=== PATIENT | male | born 1955 | race Caucasian/White ===

== ENCOUNTER 2018-02-17 20:19 | Inpatient (IN) | payer MEDICAID ==
[~2018-02-17] VITALS: Ht 167.6 cm; Wt 71.9 kg
[2018-02-17] MEDS ORDERED: SODIUM CHLORIDE 0.9% 1,000 ML IV ONE ×2 (21:09→22:18)
[2018-02-17 21:45] LABS: BASOPHILS % 0.8 % (0.0-2.0); LYMPHOCYTES % 15.4 % (20.0-50.0); MEAN CORPUSCULAR HEMOGLOBIN 30.6 pg (28.0-32.0); MEAN CORPUSCULAR VOLUME 91.7 fL (80.0-94.0); MEAN PLATELET VOLUME 9.1 fl (7.4-10.4); MONOCYTES % 6.5 % (2.0-8.0); NEUTROPHILS % 66.3 % (40.0-76.0); PLATELET 198 x1000/uL (130-400); RED BLOOD CELL COUNT 5.23 mill/uL (4.7-6.1)
[2018-02-17 21:50] LABS: CHLORIDE 96 mEq/L (98-107)
[2018-02-17] MEDS ORDERED: SODIUM CHLORIDE 0.9% 1000ML BAG (SEPSIS BOLUS) IV ONE (23:00)
[2018-02-17 23:06] LABS: BG BASE EXCESS -1.4 mmol/L (-2.0-2.0); BG CARBOXYHEMOGLOBIN 0.6 % (0.5-1.5); BG DEOXYHEMOGLOBIN 5.6 % (0.0-5.0); BG FRACTION INSPIRED OXYGEN 21; BG METHEMOGLOBIN 0.5 % (0.0-1.5); BG OXYGEN SATURATION 94.3 % (92.0-98.5); BG OXYHEMOGLOBIN 93.3 % (94.0-97.0); BG PCO2 42.4 mmHg (35.0-45.0); BG PO2 74.2 mmHg (75.0-100.0); BG SAMPLE SITE RIGHT BRACHIAL; BG TOTAL HEMOGLOBIN 16.1 g/dL (12.0-18.0); BG VENT MODE ROOM AIR
[2018-02-18 00:14] LABS: CLARITY URINE CLEAR (CLEAR); COLOR URINE YELLOW (YELLOW); KETONES URINE NEGATIVE (NEGATIVE); LEUKOCYTE ESTERASE URINE NEGATIVE (NEGATIVE); NITRITE URINE NEGATIVE (NEGATIVE); OCCULT BLOOD URINE NEGATIVE (NEGATIVE); PROTEIN URINE NEGATIVE (NEGATIVE); SPECIFIC GRAVITY URINE 1.033 (1.005-1.030); UROBILINOGEN URINE 0.2 E.U./dL (0.2-1.0)
[2018-02-18] MEDS ORDERED: INSULIN REGULAR (HUMULIN R) UD 100 UNITS/ML SYR SUBCUT ONE (02:00)
[2018-02-18] MEDS ORDERED: INSULIN REGULAR (HUMULIN R) 300UNITS/3ML ONE (02:02)
[2018-02-18 03:00] VITALS: BP 144/74
[2018-02-18 03:30] VITALS: BP 144/74
[2018-02-18] MEDS ORDERED: DEXTROSE 50% WATER 50ML SYRINGE IV PRN (04:00)
[2018-02-18] MEDS ORDERED: LIRA0.6P SQ (04:31)
[2018-02-18] MEDS: BLOOD SUGAR DIAGNOSTIC STRIP TEST SCH ×4 (06:16→21:28)
[2018-02-18 08:00] VITALS: BP 127/80
[2018-02-18] MEDS ORDERED: PNEUMOCOCCAL 23-VAL P-SAC VAC 0.5 ML IM ONE (08:00)
[2018-02-18] MEDS: INSULIN LISPRO 100 UNITS/ML SUBCUT SCH ×4 (09:21→21:28)
[2018-02-18] MEDS ORDERED: INFLUENZA VIRUS VACCINE(AFLURIA) 0.5ML SYR IM ONE (10:00)
[2018-02-18 10:12] LABS: BASOPHILS % 0.6 % (0.0-2.0); EOSINOPHILS % 13.1 % (0.0-5.0); HEMATOCRIT. 43.2 % (42.0-52.0); HEMOGLOBIN. 14.8 g/dL (14.0-18.0); LYMPHOCYTES % 25.8 % (20.0-50.0); MEAN CORPUSCULAR HEMOGLOBIN 30.7 pg (28.0-32.0); MEAN CORPUSCULAR VOLUME 89.8 fL (80.0-94.0); MEAN PLATELET VOLUME 9.5 fl (7.4-10.4); NEUTROPHILS % 52.5 % (40.0-76.0); PLATELET 204 x1000/uL (130-400); RED BLOOD CELL COUNT 4.81 mill/uL (4.7-6.1); RED CELL DISTRIBUTION WIDTH 12.7 % (11.6-14.6)
[2018-02-18 11:19] LABS: CHLORIDE 109 mEq/L (98-107)
[2018-02-18 11:30] LABS: LDL CHOLESTEROL 112 mg/dL (5-100)
[2018-02-18 11:31] LABS: HDL CHOLESTEROL 53 mg/dL (40-59)
[2018-02-18 12:00] VITALS: BP 127/78
[2018-02-18 16:00] VITALS: BP 130/64
[2018-02-18 20:00] VITALS: BP 121/63
[2018-02-18] MEDS ORDERED: INSULIN GLARGINE UD 100 UNITS/ML SYR SUBCUT SCH (22:00)
[2018-02-19] VITALS: BP 128/79
[2018-02-19 04:00] VITALS: BP 138/84
[2018-02-19 08:00] VITALS: BP 121/62
[2018-02-19] MEDS: BLOOD SUGAR DIAGNOSTIC STRIP TEST SCH ×3 (08:00→16:56)
[2018-02-19 08:02] LABS: HEMATOCRIT. 43.9 % (42.0-52.0); HEMOGLOBIN. 14.9 g/dL (14.0-18.0); MEAN CORPUSCULAR HEMOGLOBIN 30.5 pg (28.0-32.0); MEAN CORPUSCULAR VOLUME 89.7 fL (80.0-94.0); MEAN PLATELET VOLUME 9.5 fl (7.4-10.4); PLATELET 175 x1000/uL (130-400); RED BLOOD CELL COUNT 4.89 mill/uL (4.7-6.1); RED CELL DISTRIBUTION WIDTH 12.8 % (11.6-14.6)
[2018-02-19] MEDS: METFORMIN HCL 500MG TABLET PO SCH ×2 (08:53→17:12)
[2018-02-19] MEDS: GLIMEPIRIDE 1MG TABLET PO SCH ×2 (08:53→17:12)
[2018-02-19] MEDS: INSULIN LISPRO 100 UNITS/ML SUBCUT SCH ×4 (08:54→13:54)
[2018-02-19 12:00] VITALS: BP 122/64
[2018-02-19 12:08] LABS: PLATELET ESTIMATE NORMAL
[2018-02-19] MEDS ORDERED: METF500T PO (15:07)
[2018-02-19] MEDS ORDERED: INSLIS SUBCUT (15:07)
[2018-02-19] MEDS ORDERED: LANTUSUD SUBCUT (15:07)
[2018-02-19] MEDS ORDERED: AMA1 PO (15:07)
[2018-02-19 16:00] VITALS: BP 130/72
[2018-02-19 16:57] VITALS: BP 130/72
== END 2018-02-19 17:36 | disposition home or self-care (01) | DRG 420 ==
LOC: ER 20:19 → 7WST 23:07 → EDBEDREQTM 23:13 → EDBEDREQ 23:13 → ENRESERV 23:22
PROVIDERS: ADMIT Internal Medicine; ATTEND Internal Medicine
DX: E11.65 Type 2 diabetes mellitus with hyperglycemia (principal); E87.2 Acidosis; E66.9 Obesity, unspecified; I10 Essential (primary) hypertension; E78.5 Hyperlipidemia, unspecified; W19.XXXA Unspecified fall, initial encounter; Y92.000 Kitchen of unspecified non-institutional (private) residence as the place of occurrence of the external cause; Z79.4 Long term (current) use of insulin; Z82.49 Family history of ischemic heart disease and other diseases of the circulatory system; Z83.3 Family history of diabetes mellitus; Z79.84 Long term (current) use of oral hypoglycemic drugs; Z68.25 Body mass index [BMI] 25.0-25.9, adult
CPT/HCPCS: 36415; 36600; 70551; 71045; 80061; 82010; 82375; 82805; 82962; 83036; 83605; 83880; 84484; 90686; 90732; 93005; 93306; 93880; 96360; 96361; 99291; J1815; J7030